=== PATIENT | male | born 1985 | race Caucasian/White ===

== ENCOUNTER 2024-01-18 15:22 | Emergency (ER) | payer MEDICAID ==
[~2024-01-18] VITALS: Ht 182.9 cm; Wt 131.3 kg
[2024-01-18 15:39] VITALS: BP 159/109; PULSE 116; RESP 19; TEMP 98.3; O2SAT 94
[2024-01-18 15:48] VITALS: O2SAT 94
[2024-01-18 16:07] LABS: APPEARANCE,URINE CLEAR (CLEAR); BILIRUBIN,URINE NEGATIVE (NEGATIVE); BLOOD, URINE 1+ (NEGATIVE); COLOR,URINE YELLOW (YELLOW); LEUKOCYTE ESTERASE ,URINE NEGATIVE (NEGATIVE); NITRITE, URINE NEGATIVE (NEGATIVE); PROTEIN,URINE TRACE (NEGATIVE); UGLUCOSE 3+ (NEGATIVE); UROBILINOGEN,URINE 0.2 EU/dL (0.2 - 1)
[2024-01-18 16:08] LABS: BASOPHILS # (AUTO) 0.1 K/uL (0.00-0.22); BASOPHILS % (AUTO) 0.7 % (0.0-2.0); EOSINOPHILS # (AUTO) 0.3 K/uL (0-0.4); EOSINOPHILS % (AUTO) 3.1 % (0.0-4.0); HEMATOCRIT 44.9 % (36-52); HEMOGLOBIN 15.7 g/dL (12.0-18.0); LYMPHOCYTES # (AUTO) 2.4 K/uL (2.0-11.5); LYMPHOCYTES % (AUTO) 28.3 % (20.5-51.1); MEAN CORPUSCULAR HEMOGLOBIN 30 pg (27-31); MEAN CORPUSCULAR HGB CONC 35 g/dL (33-37); MEAN CORPUSCULAR VOLUME 85.3 fL (80-94); MONOCYTES # (AUTO) 0.8 K/uL (0.8-1.0); MONOCYTES % (AUTO) 9.5 % (1.7-9.3); NEUTROPHILS # (AUTO) 4.9 K/uL (1.8-7.7); NEUTROPHILS % (AUTO) 58.4 % (42.2-75.2); PLATELET COUNT (AUTO) 322 K/uL (140-450); RED BLOOD CELL COUNT(AUTO) 5.27 MIL/uL (4.20-6.10); RED CELL DISTRIBUTION WIDTH 13.3 % (11.6-13.7); WHITE BLOOD COUNT (AUTO) 8.3 K/uL (4.8-10.8)
[2024-01-18] MEDS: NACL 0.9% 1,000 ML IV ONE (16:12)
[2024-01-18 16:13] LABS: HIV RAPID SCREEN NON-REACTIVE (NON REACTIV)
[2024-01-18 16:14] LABS: BACTERIA,URINE FEW /HPF (None Seen); RBC,URINE 11-20 (MOD) /HPF (0-5); SQUAMOUS EPITHELIAL CELL,UR 0-3 (FEW) /LPF (0-3 (FEW)); WBC,URINE 0-5 /HPF (0-5)
[2024-01-18 16:22] LABS: ANION GAP 15.3 (8-16); CALCIUM 10.4 mg/dL (8.5-10.1); CARBON DIOXIDE 25.8 mmol/L (21-32); CREATININE 1.1 mg/dL (0.6-1.3); POTASSIUM 4.1 mmol/L (3.5-5.1)
[2024-01-18 16:26] LABS: ALBUMIN 4.3 g/dL (3.4-5.0); BILIRUBIN,DIRECT 0.2 mg/dL (0.0-0.3); TOTAL BILIRUBIN 1.1 mg/dL (0.0-1.0); TOTAL PROTEIN, SERUM 8.4 g/dL (6.4-8.2)
[2024-01-18] MEDS: PENICILLIN G BENZATHINE L-A 1.2 MU/2 ML SYR IM ONE (16:45)
[2024-01-18] MEDS ORDERED: METF-346 PO (16:47)
[2024-01-18] MEDS: INSULIN REGULAR, HUMAN 100 UNIT/ML VIAL IVP ONE (16:51)
[2024-01-18 17:15] VITALS: BP 134/97; PULSE 93; RESP 19; TEMP 98.3; O2SAT 98
[2024-01-19 13:17] LABS: RAPID PLASMA REAGIN NON-REACTIVE (Non Reactiv)
== END 2024-01-18 17:54 | disposition home or self-care (01) ==
LOC: MED 15:22
DX: E11.65 Type 2 diabetes mellitus with hyperglycemia (principal); R74.01 Elevation of levels of liver transaminase levels; Z79.899 Other long term (current) drug therapy
CPT/HCPCS: 36415; 80048; 80076; 81001; 82803; 82948; 85025; 86592; 86703; 87491; 96361; 96372; 96374; 99284; J0561; J1815; J7030